=== PATIENT | female | born 1945 | race American Indian/Alaskan Native ===

== ENCOUNTER 2017-12-22 12:45 | Emergency (ER) | payer MEDICARE ==
[2017-12-22] MEDS ORDERED: CATAPRES ONE (13:00)
[2017-12-22] MEDS ORDERED: MOTRIN PO ONE (13:00)
[2017-12-22] MEDS ORDERED: CATAPRES PO ONE (13:01)
[2017-12-22] MEDS ORDERED: TYLENOL PO ONE (13:07)
[2017-12-22] MEDS ORDERED: TYLENOL ONE (13:09)
--- NOTE | 2017-12-22 14:30 | Cat Scan Report ---
CT HEAD WITHOUT CONTRAST: HISTORY: Headache. TECHNIQUE: Sequential CT images without contrast. FINDINGS: Images obtained show bilateral prominence of the sulci and ventricles. There are no abnormal intra- or extra-axial blood or fluid collections. There are no focal masses or evidence of mass effect. The grewal white matter differentiation appears within normal limits. Regions of periventricular decreased attenuation are consistent with microangiopathic ischemic disease. The posterior fossa structures including the fourth ventricle, cerebellum, and brainstem appear normal. IMPRESSION: Evidence of atrophy and microangiopathic ischemic disease. No acute intracranial process noted.
--- NOTE | 2017-12-22 14:32 | Cat Scan Report ---
CT SCAN OF THE CERVICAL SPINE: HISTORY: Neck pain. TECHNIQUE: Contiguous 1.25 mm axial images of the cervical spine were obtained. Sagittal and coronal reformatted images. FINDINGS: There is normal alignment of the cervical spine. The body, pedicles and posterior ligaments are intact. No evidence of fracture or subluxation is seen. Moderate to severe degenerative disc disease is identified from C3-4 through C7-T1. Mild diffuse facet arthropathy is also noted. The prevertebral soft tissues appear normal. IMPRESSION: Moderate to severe multilevel cervical spondylosis. No acute process is noted.
[2017-12-22 14:41] VITALS: BP 138/93
[2017-12-22] MEDS ORDERED: TORADOL IM ONE (16:27)
[2017-12-22] MEDS ORDERED: FLEXERIL PO ONE (16:27)
--- NOTE | 2017-12-22 16:32 | Emergency Department Report ---
HPI - General Chief Complaint: Headache Time Seen by Provider: 12/22/17 16:00 - HPI HPI: 72-year-old AA female presents to the emergency department with complaint of a 24-hour history of a posterior headache and some associated neck pain. The neck pain is towards the side of the neck and radiates down towards the posterior shoulders. She denies any fall or any trauma. She denies any confusion, slurred speech or any other neurological deficits. She tried some Tylenol yesterday for her symptoms without any relief. 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 Primary care physician is Dr. Itz Hernadez and her panel edge painter is Dr. Daley. Her headache is currently 8 out of 10 in intensity. 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, sees a neurologist - Surgical History Past Surgical History?: Yes Hx Internal Defibrillator: Yes Additional Surgical History: Rt THR 2011, lipoma, TL - Social History Smoking Status: Never Smoker Substance Use Type: None - Medications Home Medications: Home Medications Medication Instructions Recorded Confirmed Last Taken Type Aspirin [Adult Low Dose Aspirin EC] 81 mg PO DAILY 01/12/16 01/12/16 Unknown History Aspirin EC [Aspirin Enteric Coated 325 mg PO QDAY #30 tablet 01/16/16 Unknown Rx TAB] AtorvaSTATin [Lipitor] 40 mg PO QHS #30 tablet 01/16/16 Unknown Rx Carvedilol [Coreg] 6.25 mg PO BID #60 tablet 01/16/16 Unknown Rx Furosemide [Lasix TAB] 40 mg PO QDAY #30 tablet 01/16/16 Unknown Rx Lisinopril [Zestril TAB] 5 mg PO QDAY #30 tablet 01/16/16 Unknown Rx Potassium Chloride [K-Dur] 20 meq PO QDAY #30 tablet 01/16/16 Unknown Rx Diclofenac Sodium 75 mg PO BID #20 tablet. 07/09/16 Unknown Rx Cyclobenzaprine [Flexeril 10 MG 10 mg PO BID PRN #12 tablet 12/22/17 Unknown Rx TAB] ED Review of Systems ROS: Stated complaint: HEADACHE Other details as noted in HPI Comment: All other systems reviewed and negative Constitutional: denies: chills, fever Eyes: denies: eye pain, eye discharge, vision change ENT: denies: ear pain, throat pain Respiratory: denies: cough, shortness of breath, wheezing Cardiovascular: denies: chest pain, palpitations Gastrointestinal: denies: abdominal pain, nausea, diarrhea Genitourinary: denies: urgency, dysuria, discharge Musculoskeletal: other (neck pain). denies: back pain Skin: denies: rash, lesions Neurological: headache. denies: numbness, paresthesias Physical Exam - Physical Exam Vital Signs: Vital Signs 12/22/17 12/22/17 12/22/17 12:50 13:02 14:40 Temperature 98.1 F Pulse Rate 108 H 108 H 71 Respiratory 18 18 Rate Blood Pressure 167/113 167/113 Blood Pressure 138/93 [Right] O2 Sat by Pulse 99 100 Oximetry Physical Exam: GENERAL: The patient is well-developed well-nourished. HENT: Normocephalic. Atraumatic. Patient has moist mucous membranes. No nystagmus. EYES: Extraocular motions are intact. Pupils equal reactive to light bilaterally. NECK: Supple. Trachea is midline. No midline tenderness to palpation. There is reproducible bilateral paraspinal tenderness to palpation that goes down along the trapezius muscle with associated hot musculature. CHEST/LUNGS: Clear to auscultation. There is no respiratory distress noted. HEART/CARDIOVASCULAR: Regular. There is no tachycardia. There is no murmur. ABDOMEN: Abdomen is soft, nontender. Patient has normal bowel sounds. There is no abdominal distention. SKIN: Skin is warm and dry. NEURO: The patient is awake, alert, and oriented. The patient is cooperative. The patient has no focal neurologic deficits. The patient has normal speech. Cranial nerves II through XII grossly intact. No dysmetria. No pronator drift. MUSCULOSKELETAL: There is no tenderness or deformity. There is no limitation range of motion. There is no evidence of acute injury. ED Course Vital Signs 12/22/17 12/22/17 12/22/17 12:50 13:02 14:40 Temperature 98.1 F Pulse Rate 108 H 108 H 71 Respiratory 18 18 Rate Blood Pressure 167/113 167/113 Blood Pressure 138/93 [Right] O2 Sat by Pulse 99 100 Oximetry ED Medical Decision Making - EKG Data -: EKG Interpreted by Me EKG shows normal: sinus rhythm, axis (left axis deviation), intervals, QRS complexes (left ventricular hypertrophy, incomplete right bundle branch block), ST-T waves Rate: normal - EKG Data When compared to previous EKG there are: previous EKG unavailable Interpretation: other (sinus rhythm, left axis deviation, LVH, incomplete right bundle-branch block) - Radiology Data Radiology results: report reviewed CT HEAD WITHOUT CONTRAST: HISTORY: Headache. TECHNIQUE: Sequential CT images without contrast. FINDINGS: Images obtained show bilateral prominence of the sulci and ventricles. There are no abnormal intra- or extra-axial blood or fluid collections. There are no focal masses or evidence of mass effect. The grewal white matter differentiation appears within normal limits. Regions of periventricular decreased attenuation are consistent with microangiopathic ischemic disease. The posterior fossa structures including the fourth ventricle, cerebellum, and brainstem appear normal. IMPRESSION: Evidence of atrophy and microangiopathic ischemic disease. No acute intracranial process noted. Transcribed By: TTR Dictated By: EPI LUTHER JR, MD Electronically Authenticated By: EPI LUTHER JR, MD Signed Date/Time: 12/22/[address] SCAN OF THE CERVICAL SPINE: HISTORY: Neck pain. TECHNIQUE: Contiguous 1.25 mm axial images of the cervical spine were obtained. Sagittal and coronal reformatted images. FINDINGS: There is normal alignment of the cervical spine. The body, pedicles and posterior ligaments are intact. No evidence of fracture or subluxation is seen. Moderate to severe degenerative disc disease is identified from C3-4 through C7-T1. Mild diffuse facet arthropathy is also noted. The prevertebral soft tissues appear normal. IMPRESSION: Moderate to severe multilevel cervical spondylosis. No acute process is noted. Transcribed By: TTR Dictated By: EPI LUTHER JR, MD Electronically Authenticated By: EPI LUTHER JR, MD Signed Date/Time: 12/22/17 1431 - Medical Decision Making Patient complains of a posterior headache and some neck pain. There is nothing midline. She had a CT of the head that did not show any bleed, shift, mass, ischemia or any other acute process. CT of the cervical spine shows some degenerative disc disease and osteoarthritis but otherwise no dislocation, subluxation or fracture. Patient was given some Toradol and Flexeril and appears improved. Vital signs stable including being afebrile. She does have some stiffness to the neck but she is able to touch her chin to her chest and most of her restriction is with lateral rotation. She appears low suspicion for meningitic signs. She has some reproducible tenderness and taught musculature to the trapezius muscle and paraspinal cervical muscles. She appears safe for discharge home at this time. She has been given a prescription for a muscle relaxer and will use some heat and stretches. She will return to the ER if any worsening or symptoms or any acute distress. - Differential Diagnosis tension headache, migraine headache, muscle spasm Critical Care Time: No Critical care attestation.: If time is entered above; I have spent that time in minutes in the direct care of this critically ill patient, excluding procedure time. ED Disposition Clinical Impression: Neck pain Headache Qualifiers: Headache type: tension-type Headache chronicity pattern: unspecified pattern Intractability: not intractable Qualified Code(s): G44.209 - Tension-type headache, unspecified, not intractable Disposition: DC-01 TO HOME OR SELFCARE Is pt being admited?: No Condition: Stable Instructions: Tension Headache (ED), Osteoarthritis (ED), Acute Headache (ED), Muscle Spasm (ED) Additional Instructions: Please follow-up with your primary care physician in the next few days. I recommend that you try a heating pad or warm compresses around the neck and shoulders for your muscle tension. Return to the emergency Department with any worsening of your symptoms, development of fever, any neurological changes, or with any acute distress. You have been prescribed a medication that is sedating and therefore should not be taken prior to driving, working, and responsible for children and in no way should be mixed with alcohol of any quantity. Prescriptions: Cyclobenzaprine [Flexeril 10 MG TAB] 10 mg PO BID PRN #12 tablet PRN Reason: Muscle Spasm Referrals: ITZ HERNADEZ MD [Staff Physician] - [facility] Time of Disposition: 18:22
== END 2017-12-22 18:33 | disposition home or self-care (01) ==
LOC: ED 12:45
DX: G44.209 Tension-type headache, unspecified, not intractable (principal); M54.2 Cervicalgia; I10 Essential (primary) hypertension; M19.90 Unspecified osteoarthritis, unspecified site; Z79.82 Long term (current) use of aspirin; Z98.51 Tubal ligation status; Z95.810 Presence of automatic (implantable) cardiac defibrillator
CPT/HCPCS: 70450; 72125; 93005; 93010; 96372; 99283; J1885

== ENCOUNTER 2018-12-24 09:37 | Emergency (ER) | payer MEDICARE ==
[2018-12-24] MEDS ORDERED: TORADOL IM ONE (10:42)
--- NOTE | 2018-12-24 10:45 | Emergency Department Report ---
ED Neck Pain/Injury HPI - General Chief Complaint: Neck Pain/Injury Stated Complaint: NECK PAIN Time Seen by Provider: 12/24/18 10:24 Mode of arrival: Ambulatory Limitations: No Limitations - History of Present Illness Initial Comments: Patient reports that she awoke with a stiff neck. Denies trauma MD Complaint: neck pain -: Gradual Place: home Radiation: right lateral, left lateral Severity: mild Severity scale (0 -10): 3 Quality: aching Consistency: constant Improves With: immobilization Worsens With: movement of neck Context: turning/bending Associated Symptoms: denies: headache, fever, numbness, tingling, weakness, vertigo, difficulty walking, swollen glands, difficulty swallowing, nausea, vomiting - Related Data Home Medications Medication Instructions Recorded Confirmed Last Taken Aspirin [Adult Low Dose Aspirin EC] 81 mg PO DAILY 01/12/16 01/12/16 Unknown Previous Rx's Medication Instructions Recorded Last Taken Type Aspirin EC 325 mg PO QDAY #30 tablet 01/16/16 Unknown Rx AtorvaSTATin [Lipitor] 40 mg PO QHS #30 tablet 01/16/16 Unknown Rx Carvedilol [Coreg] 6.25 mg PO BID #60 tablet 01/16/16 Unknown Rx Furosemide [Lasix TAB] 40 mg PO QDAY #30 tablet 01/16/16 Unknown Rx Lisinopril [Zestril TAB] 5 mg PO QDAY #30 tablet 01/16/16 Unknown Rx Potassium Chloride [K-Dur] 20 meq PO QDAY #30 tablet 01/16/16 Unknown Rx Diclofenac Sodium 75 mg PO BID #20 tablet.dr 07/09/16 Unknown Rx Cyclobenzaprine [Flexeril 10 MG 10 mg PO BID PRN #12 tablet 12/22/17 Unknown Rx TAB] Acetaminophen [Tylenol Arthritis] 650 mg PO Q6HR PRN #30 tablet.er 05/06/18 Unknown Rx Ibuprofen [Motrin] 400 mg PO Q8H PRN #15 tablet 05/06/18 Unknown Rx Ibuprofen [Motrin] 400 mg PO Q6H PRN #24 tablet 12/24/18 Unknown Rx methOCARBAMOL [Robaxin TAB] 500 mg PO Q8H PRN #12 tablet 12/24/18 Unknown Rx Allergies Allergy/AdvReac Type Severity Reaction Status Date / Time lisinopril Allergy Unknown Verified 12/22/17 13:11 codeine AdvReac Itching Verified 01/18/13 10:41 ED Review of Systems ROS: Stated complaint: NECK PAIN Other details as noted in HPI Other: GENERAL: No weight change, fatigue, fever, chills, or night sweats SKIN: No changes in skin or hair, no itching, no rashes, no jaundice HEAD: No trauma, headache, or visual changes EYES: No blurriness, tearing, itching, acute visual loss, conjunctival discoloration, or scleral icterus EARS: No hearing loss, tinnitus, vertigo, or earache NOSE: No rhinorrhea, stuffiness, sneezing, itching, or epistaxis NECK: pain with movement, lateral neck stiffness MOUTH: No bleeding gums, hoarseness, sore throat, or swelling CARDIAC: No new murmur, chest pain, palpitations, dyspnea on exertion, orthopnea, PND, or edema RESPIRATORY: No shortness of breath, wheeze, cough, sputum production, hemoptysis, pneumonia, asthma, bronchitis, or emphysema GI: No change in appetite, nausea, vomiting, dysphagia, diarrhea, constipation, hematemesis, melena, hematochezia, or abdominal pain URINARY: No frequency, urgency, polyuria, dysuria, hematuria, or incontinence MUSCULOSKELETAL: No muscle weakness, joint stiffness, decrease in range of motion, redness, swelling NEUROLOGIC: No headache, loss of sensation, numbness, tingling, tremors, weakness, paralysis, seizures HEMATOLOGIC: No anemia, easy bruising, bleeding, petechiae, or purpura ENDOCRINE: No hot or cold intolerance, sweating, polyuria, polydipsia or, polyphagia no thyroid problems PSYCHIATRIC: No change in mood, no anxiety, no depression 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, sees a neurologist - Surgical History Past Surgical History?: Yes Hx Internal Defibrillator: Yes Additional Surgical History: Rt THR 2011, lipoma, TL - Social History Smoking Status: Never Smoker Substance Use Type: None - Medications Home Medications: Home Medications Medication Instructions Recorded Confirmed Last Taken Type Aspirin [Adult Low Dose Aspirin EC] 81 mg PO DAILY 01/12/16 01/12/16 Unknown History Aspirin EC 325 mg PO QDAY #30 tablet 01/16/16 Unknown Rx AtorvaSTATin [Lipitor] 40 mg PO QHS #30 tablet 01/16/16 Unknown Rx Carvedilol [Coreg] 6.25 mg PO BID #60 tablet 01/16/16 Unknown Rx Furosemide [Lasix TAB] 40 mg PO QDAY #30 tablet 01/16/16 Unknown Rx Lisinopril [Zestril TAB] 5 mg PO QDAY #30 tablet 01/16/16 Unknown Rx Potassium Chloride [K-Dur] 20 meq PO QDAY #30 tablet 01/16/16 Unknown Rx Diclofenac Sodium 75 mg PO BID #20 tablet.dr 07/09/16 Unknown Rx Cyclobenzaprine [Flexeril 10 MG 10 mg PO BID PRN #12 tablet 12/22/17 Unknown Rx TAB] Acetaminophen [Tylenol Arthritis] 650 mg PO Q6HR PRN #30 tablet.er 05/06/18 Unknown Rx Ibuprofen [Motrin] 400 mg PO Q8H PRN #15 tablet 05/06/18 Unknown Rx Ibuprofen [Motrin] 400 mg PO Q6H PRN #24 tablet 12/24/18 Unknown Rx methOCARBAMOL [Robaxin TAB] 500 mg PO Q8H PRN #12 tablet 12/24/18 Unknown Rx ED Physical Exam - General Limitations: No Limitations - Other Other exam information: GENERAL: Patient in no acute distress HEAD: Normocephalic, atraumatic EYES: PERRLA, EOM intact, no scleral icterus, no conjunctival hemorrhage, visual aldrich and acuity wnl NOSE: No tenderness, discharge, sinus tenderness MOUTH: No erythema, bleeding, exudate NECK: No spinal tenderness, decreased ROM due to pain, no trauma HEART: Regular rate and rhythm, no murmur, S1-S2 are auscultated, pulses are symmetric LUNGS: No respiratory distress. Bilateral breath sounds, No tachypnea, No retractions, No wheezing, rales, rhonchi ABDOMEN: Normal bowel sounds, abdomen soft, no tenderness, no rebound, no guarding, no distention, no masses, no CVA tenderness MUSCULOSKELETAL: Normal joint range of motion, no redness, no swelling, no tenderness NEUROLOGIC: GCS 15, Alert and Oriented x3, Cranial nerves intact, normal sensation, normal strength, normal gait, no cerebellar deficit, NIHSS 0 PSYCHIATRIC: No homicidal or suicidal ideation, no anxiety, no depression, no hallucinations SKIN: Skin is warm and dry, no wounds, no rashes ED Course Vital Signs 12/24/18 12/24/18 09:43 11:10 Temperature 97.9 F Pulse Rate 88 83 Respiratory 16 16 Rate Blood Pressure 163/113 Blood Pressure 182/93 [Left] O2 Sat by Pulse 99 99 Oximetry ED Medical Decision Making - Medical Decision Making Patient comfortable. Plan treat for possible torticollis. Plan discharge with outpatient follow up. Return if any worsening. Critical care attestation.: If time is entered above; I have spent that time in minutes in the direct care of this critically ill patient, excluding procedure time. ED Disposition Clinical Impression: Torticollis Disposition: - TO HOME OR SELFCARE Is pt being admited?: No Condition: Stable Instructions: Spasmodic Torticollis (ED) Prescriptions: Ibuprofen [Motrin] 400 mg PO Q6H PRN #24 tablet PRN Reason: Pain, Mild (1-3) methOCARBAMOL [Robaxin TAB] 500 mg PO Q8H PRN #12 tablet PRN Reason: Spasms Referrals: PRIMARY CARE, [Referring] - 2-3 Days Time of Disposition: 10:43
[2018-12-24] MEDS ORDERED: ROBAXIN PO ONE (11:00)
[2018-12-24 11:11] VITALS: BP 182/93
== END 2018-12-24 11:12 | disposition home or self-care (01) ==
LOC: ED 09:37
DX: M43.6 Torticollis (principal); I10 Essential (primary) hypertension; M19.90 Unspecified osteoarthritis, unspecified site; Z88.5 Allergy status to narcotic agent; Z79.82 Long term (current) use of aspirin; Z79.899 Other long term (current) drug therapy
CPT/HCPCS: 96372; 99282; J1885

== ENCOUNTER 2019-04-26 03:12 | Emergency (ER) | payer MEDICARE | END 2019-04-26 11:36 | disposition home or self-care (01) | LOC: ED 03:12 | CPT/HCPCS: 20605; 36415; 73100; 80048; 80076; 82140; 83735; 84550; 85025; 85652; 86140; 87040; 96374; 96375; 99284; J2270; J2405 ==

== ENCOUNTER 2020-02-12 09:06 | Emergency (ER) | payer MEDICARE ==
[2020-02-12 09:20] VITALS: BP 151/99
[2020-02-12] MEDS ORDERED: KETOROLAC 30 MG/1 ML INJ IM ONE (09:54)
[2020-02-12] MEDS ORDERED: dexAMETHasone 20 MG/5 ML VIAL IM ONE (09:54)
--- NOTE | 2020-02-12 09:58 | Emergency Department Report ---
Upper Extremity - [facility] Chief Complaint: Extremity Injury, Upper Stated Complaint: RT ARM PAIN/DISCOMFORT Time Seen by Provider: 02/12/20 09:32 Upper Extremity: Right Elbow Occurred When: 2 Days Mechanism: Unsure Severity: severe Symptoms: Yes Pain with Movement, Yes Limited Range of Movement, Yes Swelling, No Deformity, No Numbness, No Weakness, No Bruising/Ecchymosis, No Laceration or Abrasion Other History: The patient was evaluated in the emergency department for symptoms described in the history of present illness. He/she was evaluated in the context of the global COVID-19 pandemic, which necessitated consideration that the patient might be at risk for infection with the virus that causes COVID-19. Institutional protocols and algorithms that pertain to the evaluation of patients at risk for COVID-19 are in a state of rapid change based on information released by regulatory bodies including the CDC and federal and state organizations. These policies and algorithms were followed during the patient's care in the emergency department. Please note that these policies, procedures and recommendations changed on a rapid basis. 74-year-old - [place] female presents to the emergency room for 2-day history of right elbow pain and swelling. Patient denies any injury. Patient states that she woke up on started having a little pain again on Thursday pain had increased and notes inability to fully extend her right arm. Patient denies any fever chills no trauma. 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 Operative fixation of the T-spine - Social History Smoking Status: Never Smoker Substance Use Type: None - Medications Home Medications: Home Medications Medication Instructions Recorded Confirmed Last Taken Type Aspirin [Adult Low Dose Aspirin EC] 81 mg PO DAILY 01/12/16 01/12/16 Unknown History Aspirin EC [Ecotrin] 325 mg PO QDAY #30 tablet 01/16/16 Unknown Rx AtorvaSTATin [Lipitor] 40 mg PO QHS #30 tablet 01/16/16 Unknown Rx Furosemide [Lasix TAB] 40 mg PO QDAY #30 tablet 01/16/16 Unknown Rx Potassium Chloride [K-Dur] 20 meq PO QDAY #30 tablet 01/16/16 Unknown Rx carvediloL [Coreg] 6.25 mg PO BID #60 tablet 01/16/16 Unknown Rx lisinopriL [Zestril TAB] 5 mg PO QDAY #30 tablet 01/16/16 Unknown Rx Diclofenac Sodium 75 mg PO BID #20 tablet. 07/09/16 Unknown Rx Cyclobenzaprine [Flexeril 10 MG 10 mg PO BID PRN #12 tablet 12/22/17 Unknown Rx TAB] Acetaminophen [Tylenol Arthritis] 650 mg PO Q6HR PRN #30 tablet.er 05/06/18 Unknown Rx Ibuprofen [Motrin] 400 mg PO Q8H PRN #15 tablet 05/06/18 Unknown Rx Ibuprofen [Motrin] 400 mg PO Q6H PRN #24 tablet 12/24/18 Unknown Rx methOCARBAMOL [Robaxin TAB] 500 mg PO Q8H PRN #12 tablet 12/24/18 Unknown Rx HYDROcodone/APAP 5-325 [Atka 1 each PO Q4HR PRN #14 tablet 04/26/19 Unknown Rx 5/325] Naproxen [Naproxen DR] 375 mg PO BID #14 tablet.dr 04/26/19 Unknown Rx Meloxicam [Mobic] 7.5 mg PO QDAY #30 tablet 02/12/20 Unknown Rx predniSONE [Deltasone] 20 mg PO QDAY #5 tab 02/12/20 Unknown Rx Upper Extremity Exam - Exam General: Vital signs noted. No distress. Alert and acting appropriately. ED Course Vital Signs 02/12/20 09:16 Temperature 98.0 F Pulse Rate 87 Respiratory 18 Rate Blood Pressure 151/99 O2 Sat by Pulse 100 Oximetry ED Medical Decision Making - Medical Decision Making 74-year-old -[place] female presents to the emergency room for 2-day history of right elbow pain and swelling. Patient denies any injury. Patient states that she woke up on started having a little pain again on Thursday pain had increased and notes inability to fully extend her right arm. Patient denies any fever chills no trauma. Patient denies any repetitive movements such as playing sports cooking knitting cleaning. Patient was given injection of Toradol and dexamethasone. Patient was given something to eat and drink to take her blood pressure medication. Critical care attestation.: If time is entered above; I have spent that time in minutes in the direct care of this critically ill patient, excluding procedure time. ED Disposition Clinical Impression: Right elbow tendinitis Disposition: - TO HOME OR SELFCARE Is pt being admited?: No Does the pt Need Aspirin: No Condition: Stable Instructions: Tendinitis (ED), Tennis Elbow (ED) Additional Instructions: Please take medication as prescribed. Be sure to increase your fluid intake. You can get an [id number] elbow brace at the pharmacy. Follow-up with your primary care provider for symptoms persist or gets worse. Prescriptions: predniSONE [Deltasone] 20 mg PO QDAY #5 tab Meloxicam [Mobic] 7.5 mg PO QDAY #30 tablet Referrals: TEODORA SOSA MD [Staff Physician] - 3-5 Days
== END 2020-02-12 10:25 | disposition home or self-care (01) ==
LOC: ED 09:06
DX: M77.8 Other enthesopathies, not elsewhere classified (principal); I10 Essential (primary) hypertension; M19.90 Unspecified osteoarthritis, unspecified site; Z88.6 Allergy status to analgesic agent; Z88.8 Allergy status to other drugs, medicaments and biological substances; Z79.899 Other long term (current) drug therapy; Z98.890 Other specified postprocedural states
CPT/HCPCS: 96372; 99282; J1100; J1885

== ENCOUNTER 2021-04-11 19:08 | Emergency (ER) | payer MEDICARE ==
--- NOTE | 2021-04-11 22:08 | XRay Report ---
Lumbar spine, 3 views HISTORY: Pain COMPARISON: None FINDINGS: There is moderate left convex curvature of the lumbar spine with apex at L3. Grade 1 ashley listhesis of L4 on L5 is likely related to severe lower lumbar facet arthropathy. Moderately advanced lower lumbar discogenic degenerative changes, greatest at L5-S1. Vertebral body heights are preserve d. No evidence of fracture. IMPRESSION: Advanced and multilevel lumbar spondylosis, greatest within the lower lumbar spine. Degen erative grade 1 anterolisthesis of L4 on L5. No acute abnormality. Signer Name: Matt Schilling MD Signed: 04/11/2021 10:04 PM Workstation Name: [id number]
--- NOTE | 2021-04-11 22:09 | Emergency Department Report ---
ED General Adult HPI - General Chief complaint: Back Pain/Injury Stated complaint: BACK PAINS Time Seen by Provider: 04/11/21 21:20 Source: patient Mode of arrival: Ambulatory Limitations: No Limitations - History of Present Illness Initial comments: Knee 6-year-old female with history of hypertension who presents for bilateral low back pain patient denies fall injury or trauma. Patient denies history of renal stones. Patient does have surgical history secondary diagnosis of 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. With some arthralgia. There is no numbness no tingling no paralysis. Patient denies decrease or loss of bowel or bladder function. Pain is rated at 7/10 radiating to bilateral lower extremities. Pain exacerbated by movement. Delia urinary frequency and urgency. No hematuria. Patient is postmenopausal. - Related Data Home Medications Medication Instructions Recorded Confirmed Last Taken Aspirin [Adult Low Dose Aspirin EC] 81 mg PO DAILY 01/12/16 01/12/16 Unknown Previous Rx's Medication Instructions Recorded Last Taken Type Aspirin EC [Ecotrin] 325 mg PO QDAY #30 tablet 01/16/16 Unknown Rx AtorvaSTATin [Lipitor] 40 mg PO QHS #30 tablet 01/16/16 Unknown Rx Furosemide [Lasix TAB] 40 mg PO QDAY #30 tablet 01/16/16 Unknown Rx Potassium Chloride [K-Dur] 20 meq PO QDAY #30 tablet 01/16/16 Unknown Rx carvediloL [Coreg] 6.25 mg PO BID #60 tablet 01/16/16 Unknown Rx lisinopriL [Zestril TAB] 5 mg PO QDAY #30 tablet 01/16/16 Unknown Rx Diclofenac Sodium 75 mg PO BID #20 tablet. 07/09/16 Unknown Rx Cyclobenzaprine [Flexeril 10 MG 10 mg PO BID PRN #12 tablet 12/22/17 Unknown Rx TAB] Acetaminophen [Tylenol Arthritis] 650 mg PO Q6HR PRN #30 tablet.er 05/06/18 Unknown Rx Ibuprofen [Motrin] 400 mg PO Q8H PRN #15 tablet 05/06/18 Unknown Rx Ibuprofen [Motrin] 400 mg PO Q6H PRN #24 tablet 12/24/18 Unknown Rx methOCARBAMOL [Robaxin TAB] 500 mg PO Q8H PRN #12 tablet 12/24/18 Unknown Rx HYDROcodone/APAP 5-325 [[place] 1 each PO Q4HR PRN #14 tablet 04/26/19 Unknown Rx 5/325] Naproxen [Naproxen DR] 375 mg PO BID #14 tablet.dr 04/26/19 Unknown Rx Meloxicam [Mobic] 7.5 mg PO QDAY #30 tablet 02/12/20 Unknown Rx predniSONE [Deltasone] 20 mg PO QDAY #5 tab 02/12/[address] [Voltaren Dr] 75 mg PO QID PRN #30 tablet 04/12/21 Unknown Rx predniSONE [Deltasone] 40 mg PO QDAY 5 Days #10 tab 04/12/21 Unknown Rx tiZANidine [Zanaflex 4mg TAB] 4 mg PO Q8H PRN #20 tablet 04/12/21 Unknown Rx Allergies Allergy/AdvReac Type Severity Reaction Status Date / Time lisinopril Allergy Unknown Verified 12/22/17 13:11 codeine AdvReac Itching Verified 01/18/13 10:41 ED Review of Systems ROS: Stated complaint: BACK PAINS Other details as noted in HPI Constitutional: denies: chills, fever Eyes: denies: eye pain, eye discharge, vision change ENT: denies: ear pain, throat pain Respiratory: denies: cough, shortness of breath, wheezing Cardiovascular: denies: chest pain, palpitations Endocrine: no symptoms reported Gastrointestinal: denies: abdominal pain, nausea, vomiting, diarrhea Genitourinary: urgency, dysuria, frequency. denies: hematuria, discharge Musculoskeletal: back pain, arthralgia Skin: denies: rash, lesions Neurological: denies: headache, weakness, paresthesias, vertigo Psychiatric: denies: anxiety, depression Hematological/Lymphatic: denies: easy bleeding, easy bruising ED Past Medical Hx - Past Medical History Hx Hypertension: Yes Hx Arthritis: Yes Additional medical history: 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, sees a neurologist - Surgical History Hx Internal Defibrillator: Yes Additional Surgical History: Rt THR 2012, lipoma, TL. Operative fixation of the T-spine - Social History Smoking Status: Never Smoker Substance Use Type: None - Medications Home Medications: Home Medications Medication Instructions Recorded Confirmed Last Taken Type Aspirin [Adult Low Dose Aspirin EC] 81 mg PO DAILY 01/12/16 01/12/16 Unknown History Aspirin EC [Ecotrin] 325 mg PO QDAY #30 tablet 09/14/16 Unknown Rx AtorvaSTATin [Lipitor] 40 mg PO QHS #30 tablet 01/16/16 Unknown Rx Furosemide [Lasix TAB] 40 mg PO QDAY #30 tablet 01/16/16 Unknown Rx Potassium Chloride [K-Dur] 20 meq PO QDAY #30 tablet 01/16/16 Unknown Rx carvediloL [Coreg] 6.25 mg PO BID #60 tablet 01/16/16 Unknown Rx lisinopriL [Zestril TAB] 5 mg PO QDAY #30 tablet 01/16/16 Unknown Rx Diclofenac Sodium 75 mg PO BID #20 tablet.dr 07/09/16 Unknown Rx Cyclobenzaprine [Flexeril 10 MG 10 mg PO BID PRN #12 tablet 12/22/17 Unknown Rx TAB] Acetaminophen [Tylenol Arthritis] 650 mg PO Q6HR PRN #30 tablet.er 05/06/18 Unknown Rx Ibuprofen [Motrin] 400 mg PO Q8H PRN #15 tablet 05/06/18 Unknown Rx Ibuprofen [Motrin] 400 mg PO Q6H PRN #24 tablet 12/24/18 Unknown Rx methOCARBAMOL [Robaxin TAB] 500 mg PO Q8H PRN #12 tablet 12/24/18 Unknown Rx HYDROcodone/APAP 5-325 [[place] 1 each PO Q4HR PRN #14 tablet 04/26/19 Unknown Rx 5/325] Naproxen [Naproxen DR] 375 mg PO BID #14 tablet.dr 04/26/19 Unknown Rx Meloxicam [Mobic] 7.5 mg PO QDAY #30 tablet 02/12/20 Unknown Rx predniSONE [Deltasone] 20 mg PO QDAY #5 tab 02/12/[address] [[place]] 75 mg PO QID PRN #30 tablet 04/12/21 Unknown Rx predniSONE [Deltasone] 40 mg PO QDAY 5 Days #10 tab 04/12/21 Unknown Rx tiZANidine [Zanaflex 4mg TAB] 4 mg PO Q8H PRN #20 tablet 04/12/21 Unknown Rx ED Physical Exam - General Limitations: No Limitations General appearance: alert, in no apparent distress - Head Head exam: Present: atraumatic, normocephalic - Eye Eye exam: Present: normal appearance, EOMI Pupils: Present: normal accommodation - ENT ENT exam: Present: mucous membranes moist - Neck Neck exam: Present: normal inspection, full ROM. Absent: tenderness, meningismus - Respiratory Respiratory exam: Present: normal lung sounds bilaterally. Absent: respiratory distress, wheezes, rhonchi - Cardiovascular Cardiovascular Exam: Present: regular rate, normal rhythm, normal heart sounds. Absent: systolic murmur, diastolic murmur, rubs, gallop - GI/Abdominal GI/Abdominal exam: Present: soft, normal bowel sounds. Absent: distended, tenderness, bruit, hernia - Rectal Rectal exam: Present: deferred - Extremities Exam Extremities exam: Present: normal inspection, full ROM. Absent: tenderness - Back Exam Back exam: Present: full ROM, CVA tenderness (L), paraspinal tenderness. Absent: CVA tenderness (R), muscle spasm, vertebral tenderness, rash noted - Expanded Back Exam Expanded Back exam: Absent: saddle anesthesia Back exam: Positive Straight Leg Raise: Left, Right - Neurological Exam Neurological exam: Present: alert, oriented X3, CN II-XII intact, reflexes normal. Absent: motor sensory deficit - Expanded Neurological Exam Expanded Patient oriented to: Present: person, place, time Speech: Present: fluid speech Motor strength exam: RUE: 5, LUE: 5, RLE: 5, LLE: 5 Best Eye Response ([place]): (4) open spontaneously Best Motor Response ([place]): (6) obeys commands Best Verbal Response ([place]): (5) oriented Radha Total: 15 - Psychiatric Psychiatric exam: Present: normal affect, normal mood - Skin Skin exam: Present: warm, dry, intact, normal color. Absent: rash ED Course Vital Signs 04/11/21 19:08 Temperature 97.9 F Pulse Rate 95 H Respiratory 20 Rate Blood Pressure 166/99 [Left] O2 Sat by Pulse 97 Oximetry ED Medical Decision Making - Lab Data Result diagrams: 04/11/21 22:15 04/11/21 22:15 - Radiology Data Radiology results: report reviewed, image reviewed Lumbar spine, 3 views HISTORY: Pain COMPARISON: None FINDINGS: There is moderate left convex curvature of the lumbar spine with apex at L3. Grade 1 anterolisthesis of L4 on L5 is likely related to severe lower lumbar facet arthropathy. Moderately advanced lower lumbar discogenic degenerative changes, greatest at L5-S1. Vertebral body heights are preserved. No evidence of fracture. IMPRESSION: Advanced and multilevel lumbar spondylosis, greatest within the lower lumbar spine. Degenerative grade 1 anterolisthesis of L4 on L5. No acute abnormality. Signer Name: Matt Schilling MD Signed: 04/11/2021 10:04 PM Workstation Name: [id number] - Medical Decision Making Pain is improved with medications given in ED, UA normal, x-ray severe lumbar spondylosis. Plan follow-up with orthopedic surgery, follow-up primary care doctor. Return to emergency department should symptoms worsen. Patient verbalized agreement and understanding with discharge plan. Home in stable condition at this time. Critical care attestation.: If time is entered above; I have spent that time in minutes in the direct care of this critically ill patient, excluding procedure time. ED Disposition Clinical Impression: Lumbar spondylosis Low back strain Qualifiers: Encounter type: initial encounter Qualified Code(s): S39.012A - Strain of muscle, fascia and tendon of lower back, initial encounter Disposition: HOME / SELF CARE / HOMELESS Is pt being admited?: No Does the pt Need Aspirin: No Condition: Stable Instructions: Low Back Sprain or Strain Rehab-SportsMed, Degenerative Disk Disease Additional Instructions: Take medications as prescribed, follow-up with orthopedic surgery. Follow-up with your primary care doctor in 2 to 3 days. Return to emergency department should symptoms worsen. Prescriptions: predniSONE [Deltasone] 40 mg PO QDAY 5 Days #[address] [Voltaren Dr] 75 mg PO QID PRN #30 tablet PRN Reason: pain tiZANidine [Zanaflex 4mg TAB] 4 mg PO Q8H PRN #20 tablet PRN Reason: back spasms Referrals: THOMAS DUPONT MD [Staff Physician] - 3-5 Days CLEMENTINE GARCIAS MD [Staff Physician] - 3-5 Days Forms: Work/School Release Form(ED) Time of Disposition: 00:16
[2021-04-11 22:49] LABS: Bilirubin,Urine NEG (Negative); Blood,Urine NEG (Negative); Color,Urine Yellow (Yellow); Mucus,Urine FEW /HPF; Protein,Urine <15 mg/dL mg/dL (Negative)
[2021-04-11 22:51] LABS: Basophils % (Auto) 0.3 % (0.0-1.8); Eosinophils # (Auto) 0.1 K/mm3 (0.0-0.4); Eosinophils % (Auto) 1.2 % (0.0-4.3); Hematocrit 41.1 % (30.3-42.9); Lymphocytes # (Auto) 2.8 K/mm3 (1.2-5.4); Mean Corpuscular HGB Conc 32 % (30-34); Mean Corpuscular Volume 90 fl (79-97); Monocytes # (Auto) 0.7 K/mm3 (0.0-0.8); Monocytes % (Auto) 8.7 % (0.0-7.3); Platelet Count 179 K/mm3 (140-440); Red Blood Count 4.57 M/mm3 (3.65-5.03); Red Cell Distribution Width 14.3 % (13.2-15.2)
[2021-04-11 23:09] LABS: Alanine Aminotransferase 8 units/L (7-56); Albumin 4.5 g/dL (3.9-5); BUN/Creatinine Ratio 26; Blood Urea Nitrogen 18 mg/dL (7-17); Calcium 9.8 mg/dL (8.4-10.2); Hemolysis Index 2
[2021-04-11] MEDS ORDERED: KETOROLAC 30 MG/1 ML INJ IM ONE (23:49)
[2021-04-12 01:08] VITALS: BP 147/89
== END 2021-04-12 01:00 | disposition home or self-care (01) ==
LOC: ED 19:08
DX: M47.816 Spondylosis without myelopathy or radiculopathy, lumbar region (principal); S39.012A Strain of muscle, fascia and tendon of lower back, initial encounter; X58.XXXA Exposure to other specified factors, initial encounter; I10 Essential (primary) hypertension; Z88.5 Allergy status to narcotic agent; Z88.8 Allergy status to other drugs, medicaments and biological substances; Y93.89 Activity, other specified; Y92.89 Other specified places as the place of occurrence of the external cause; Y99.8 Other external cause status
CPT/HCPCS: 36415; 72100; 80053; 81001; 85025; 96372; 99284; J1885

== ENCOUNTER 2021-07-09 11:07 | Outpatient (CLI) | payer MEDICARE ==
--- NOTE | 2021-07-09 13:21 | XRay Report ---
PELVIS ONE VIEW RIGHT FEMUR 2 VIEWS INDICATION: PAIN IN THR RIGHT HIP M25.551. COMPARISON: 05/06/2018 IMPRESSION: Stable appearance of the right hip replacement since the previous exam. No evidence for loosening or infection. The right femur is intact. The pelvic bones are intact. No evidence for acute fracture or bone lesion. There are advanced degenerative changes at the left hip. 2 cm calcified [place] fibroid is noted in the central pelvis. The soft tissues are unremarkable. Signer Name: Jj Hill Jr, MD Signed: 07/09/2021 1:16 PM Workstation Name: [id number]
--- NOTE | 2021-07-09 13:22 | XRay Report ---
PELVIS ONE VIEW RIGHT FEMUR 2 VIEWS INDICATION: PAIN IN THR RIGHT HIP M25.551. COMPARISON: 05/06/2018 IMPRESSION: Stable appearance of the right hip replacement since the previous exam. No evidence for loosening or infection. The right femur is intact. The pelvic bones are intact. No evidence for acute fracture or bone lesion. There are advanced degenerative changes at the left hip. 2 cm calcified [place] fibroid is noted in the central pelvis. The soft tissues are unremarkable. Signer Name: Jj Hill Jr, MD Signed: 07/09/2021 1:16 PM Workstation Name: [id number]
== END 2021-07-09 11:08 | disposition home or self-care (01) ==
LOC: XRAY 11:07
PROVIDERS: ATTEND Orthopaedic Surgery
DX: M16.12 Unilateral primary osteoarthritis, left hip (principal); D25.9 Leiomyoma of uterus, unspecified
CPT/HCPCS: 72170

== ENCOUNTER 2021-11-08 09:49 | Inpatient (IN) | payer MEDICAID, MEDICARE ==
[2021-11-05 10:54] LABS: Hematocrit 40.5 % (30.3-42.9); Hemoglobin 13.2 gm/dl (10.1-14.3); Mean Corpuscular HGB Conc 33 % (30-34); Mean Corpuscular Volume 88 fl (79-97); Platelet Count 181 K/mm3 (140-440); Red Cell Distribution Width 14.3 % (13.2-15.2)
--- NOTE | 2021-11-05 11:08 | Anesthesia Consultation ---
Anesthesia Consult and Med Hx Date of service: 11/05/21 - Airway Anesthetic Teeth Evaluation: Good ROM Head & Neck: Adequate Mental/Hyoid Distance: Adequate Mallampati Class: Class II Intubation Access Assessment: Probably Good - Pre-Operative Health Status ASA Pre-Surgery Classification: ASA3 Proposed Anesthetic Plan: General - Pulmonary Hx Smoking: No Hx Sleep Apnea: No (WAN PRE SCREEN LOW RISK) - Cardiovascular System Hx Hypertension: Yes (X 14 YRS) Hx Heart Attack/AMI: No (EF 25%) Hx Pacemaker: Yes (2011) Hx Internal Defibrillator: Yes (2011) - Central Nervous System Hx Back Pain: Yes (WITH RIGHT LEG PAIN AND NUMBNESS) Hx Psychiatric Problems: No - Hematic Hx Anemia: No - Other Systems Hx Cancer: No
[2021-11-05 11:10] LABS: BUN/Creatinine Ratio 24; Blood Urea Nitrogen 19 mg/dL (7-17); Calcium 9.7 mg/dL (8.4-10.2); Hemolysis Index 2
[~2021-11-08 09:49] MED LIST: ACETAMINOPHEN 325 MG TAB PO SCH; CELECOXIB 200 MG CAP PO NR; FAMOTIDINE 20 MG TAB PO NR; GABAPENTIN 500 MG/10 ML ORAL LIQD PO NR; LACTATED RINGERS 1,000 ML IV SCH; MIDAZOLAM 2 MG/2 ML INJ IV NR; ceFAZolin/Water 2 GM/20 ML 2 GM/20 ML SYRINGE IV NR; fentaNYL 100 MCG/2 ML INJ IV PRN
[2021-11-08] MEDS ORDERED: dexAMETHasone 4 MG/ML VIAL ONE (11:27)
[2021-11-08] MEDS ORDERED: BUPIVACAINE/PF (0.25%) 2.5 MG/ML 10 ML VIAL INFILTRATI ONE (11:28)
--- NOTE | 2021-11-08 11:55 | Anesthesia Day of Surgery ---
Anesthesia Day of Surgery - Day of Surgery Patient Examined: Yes Patient H&P Reviewed: Yes Patient is NPO: Yes Beta Blockers: Yes Cardiac Clearance: Yes
[2021-11-08] MEDS ORDERED: ANTICOAGULANT SOD CITRATE SOLUTION MC ONE (12:09)
[2021-11-08] MEDS ORDERED: fentaNYL 100 MCG/2 ML INJ ONE (12:29)
[2021-11-08] MEDS ORDERED: propofoL 200 MG/20 ML VIAL IV ONE (12:30)
[2021-11-08] MEDS ORDERED: LIDOCAINE MPF (2%) 20 MG/1 ML VIAL 5 ML ONE (12:31)
[2021-11-08] MEDS ORDERED: BUPIVACAINE/PF (0.5%) 5 MG/1 ML 10 ML VIAL INFILTRATI ONE ×2 (13:01→15:09)
[2021-11-08] MEDS ORDERED: MORPHINE 10 MG/1 ML INJ ONE (13:02)
[2021-11-08] MEDS ORDERED: SODIUM CHLORIDE 0.9% 100 ML ONE (13:02)
[2021-11-08] MEDS ORDERED: SODIUM CHLORIDE 0.9% 50 ML ONE (13:02)
[2021-11-08] MEDS ORDERED: TRANEXAMIC ACID 1,000 MG/10 ML ONE (13:02)
[2021-11-08] MEDS ORDERED: KETOROLAC 30 MG/1 ML INJ ONE (13:04)
[2021-11-08] MEDS ORDERED: FAMOTIDINE 20 MG/2 ML INJ IV ONE (13:36)
[2021-11-08] MEDS ORDERED: ePHEDrine SULFATE 50 MG/1 ML INJ ONE (14:12)
[2021-11-08] MEDS ORDERED: MORPHINE 4 MG/1 ML INJ IV PRN (14:22)
[2021-11-08] MEDS ORDERED: MORPHINE 2 MG/1 ML INJ IV PRN (14:22)
[2021-11-08] MEDS ORDERED: ONDANSETRON 4 MG/2 ML INJ IV PRN (14:22)
[2021-11-08] MEDS ORDERED: ACETAMINOPHEN 325 MG TAB PO PRN (14:22)
--- NOTE | 2021-11-08 14:30 | Procedure Note ---
Date of procedure: 11/08/21 Pre-op diagnosis: Severe osteoarthritis left hip Post-op diagnosis: same Procedure: Left total hip replacement Procedure The patient was brought to the OR and placed in the OR table in the supine position following induction intubation by anesthesia the patient's was turned into the right lateral decubitus position care was taken to protect the bony areas and a axillary roll was used and the left axilla. Left hip and thigh were then prepped and draped in the usual sterile manner. A timeout procedure was done to identify the patient and the correct operative site. Using the lateral approach incision was taken down through skin and subcutaneous the fascia dustin was incised A Charnley retractor was placed deep within the wound care was taken to enter the anterior hip capsule by the vastus lateralis and the gluteus medius tendons in the knee was flexed and internally rotated which brought us upon the anterior portion of the hip joint using a small broach and osteotomy was performed on the femoral neck approximately 2 cm to centimeters proximal to the lesser trochanter. Using Lino retractors the the acetabular structures were evaluated the patient was noted to have some moderate changes within the acetabulum reaming was begun starting with a 44 mm diameter and advancing up to a 50 mm cup was taken to the observed bleeding bone within the acetabulum nicely 50 mm cup was inserted care was taken to maintain the proper version that being 45 abduction and 20 of anteversion and a small screw was used to stabilize this acetabular component next attention was turned to the proximal femur using a cookie cutter and the proximal femoral canal was entered this was then reamed and broached to a #2 stem And the hip joint was then reduced using a 30 neutral neck and a 32 mm head hip was reduced taken through a range of motion and was found to be stable Trial component was removed and the hip joint was then copiously irrigated the final components were inserted that being a #2 femoral stem with a 32 mm head again the hip joint was reduced and was taken through a range of motion and found stable. He was closed in a standard routine fashion. Dressings were applied the patient tolerated the procedure and there were no complications he was taken to postanesthesia recovery stable Anesthesia: MAC, regional Surgeon: THOMAS DUPONT (Scotty Garcia, 1st assist) Estimated blood loss: other (300cc) Pathology: list (Portions of the left femoral head and neck) Specimen disposition: to lab Condition: stable Disposition: PACU
[2021-11-08] MEDS ORDERED: ceFAZolin/NS 1 GM/50 ML 1 GM/50 ML BAG IV SCH (15:00)
[2021-11-08] MEDS ORDERED: TRANEXAMIC ACID 1,000 MG/10 ML IV ONE (15:06)
[2021-11-08] MEDS ORDERED: MORPHINE 10 MG/1 ML INJ IM ONE (15:07)
[2021-11-08] MEDS ORDERED: KETOROLAC 30 MG/1 ML INJ IM ONE (15:07)
[2021-11-08] MEDS ORDERED: SODIUM CHLORIDE 0.9% 50 ML IVPB IV ONE (15:08)
[2021-11-08] MEDS ORDERED: SODIUM CHLORIDE 0.9% 100 ML IVPB IV ONE (15:08)
--- NOTE | 2021-11-08 15:21 | XRay Report ---
LEFT HIP ONE VIEW INDICATION: post op evaluation. COMPARISON: 05/06/2018 IMPRESSION: Recent left hip arthroplasty changes are evident. The hardware appears well applied wit h normal articulation at the joint. Signer Name: Jj Hill Jr, MD Signed: 11/08/2021 3:17 PM Workstation Name: [id number]
[2021-11-08] MEDS: KETOROLAC 30 MG/1 ML INJ IV PRN ×2 (15:55→23:26)
[2021-11-08] MEDS: ceFAZolin/NS 1 GM/50 ML 1 GM/50 ML BAG IV SCH (21:50)
[2021-11-09] MEDS: ceFAZolin/NS 1 GM/50 ML 1 GM/50 ML BAG IV SCH (04:39)
[2021-11-09 08:47] LABS: Hematocrit 37.9 % (30.3-42.9); Hemoglobin 11.9 gm/dl (10.1-14.3)
--- NOTE | 2021-11-09 12:13 | Consultation ---
History of Present Illness - Reason for Consult Consult date: 11/09/21 Medical management Requesting physician: THOMAS CERON - History of Present Illness 76 YO Female with Vascular Dementia, Cerebral Atherosclerosis, OA, HTN, HLD, CHF(EF 25%), Cardiomyopathy S/P ICD Placement admitted for elective THR. Consult placed by Dr. Ceron for medical management. Patient seen and evaluated in room. Patient resting comfortably. Patient denies chest pain, dizziness, confusion, shortness of breath. Patient found to be hypotensive with a systolic blood pressure in the 80s. Patient treated with IV fluid resuscitation therapy and infectious work-up. Past History Past Medical History: arthritis, heart failure, hypertension, hyperlipidemia Past Surgical History: total hip replacement, Other (Spine surgery) Social history: single. denies: smoking, alcohol abuse, prescription drug abuse Family history: diabetes, hypertension Medications and Allergies Allergies Allergy/AdvReac Type Severity Reaction Status Date / Time lisinopril Allergy COUGH , Verified 10/29/21 16:23 ITCHING codeine AdvReac Itching Verified 01/18/13 10:41 Home Medications Medication Instructions Recorded Confirmed Last Taken Type Aspirin [Adult Low Dose Aspirin EC] 81 mg PO DAILY 01/12/16 10/29/21 Unknown History AtorvaSTATin [Lipitor] 40 mg PO QHS #30 tablet 01/16/16 10/29/21 11/07/21 Rx Furosemide [Lasix TAB] 40 mg PO QDAY #30 tablet 01/16/16 10/29/21 11/07/21 Rx Doxazosin Mesylate [Cardura] 2 mg PO DAILY 10/29/21 10/29/21 11/07/21 History Losartan [Cozaar] 100 mg PO QDAY 10/29/21 10/29/21 11/07/21 History Omeprazole 40 mg PO BID 10/29/21 10/29/21 11/07/21 History Spironolactone [Aldactone] 25 mg PO QDAY 10/29/21 10/29/21 11/07/21 History carvediloL [Coreg] 12.5 mg PO BID 10/29/21 11/08/21 11/08/21 06:00 History traMADoL [Ultram] 50 mg PO Q6HR PRN 10/29/21 10/29/21 11/07/21 History Active Meds: Active Medications Acetaminophen (Acetaminophen 325 Mg Tab) 650 mg PO Q4H PRN PRN Reason: Pain MILD(1-3)/Fever >100.5/SHARMA Atorvastatin Calcium (Atorvastatin 40 Mg Tab) 40 mg PO QHS MITUL Enoxaparin Sodium (Enoxaparin 40 Mg/0.4 Ml Inj) 40 mg SUB-Q QDAY MITUL Ibuprofen (Ibuprofen 800 Mg Tab) 800 mg PO Q8H PRN PRN Reason: Pain, Moderate (4-6) Ketorolac Tromethamine (Ketorolac 30 Mg/1 Ml Inj) 15 mg IV Q6H PRN PRN Reason: Pain, Moderate (4-6) Stop: 11/13/21 14:21 Last Admin: 11/08/21 23:26 Dose: 15 mg Miscellaneous Medication (Omeprazole [Omeprazole]) 40 mg PO BID [facility] Morphine Sulfate (Morphine 2 Mg/1 Ml Inj) 2 mg IV Q4H PRN PRN Reason: Pain, Moderate (4-6) Last Admin: 11/09/21 04:38 Dose: 2 mg Morphine Sulfate (Morphine 4 Mg/1 Ml Inj) 4 mg IV Q4H PRN PRN Reason: Pain , Severe (7-10) Ondansetron HCl (Ondansetron 4 Mg/2 Ml Inj) 4 mg IV Q8H PRN PRN Reason: Nausea And Vomiting Sodium Chloride (Sodium Chloride 0.9% 10 Ml Flush Syringe) 10 ml IV PRN NR Stop: 11/15/21 14:59 Review of Systems Constitutional: no weight loss, no weight gain, no fever, no chills Ears, nose, mouth and throat: no ear pain, no ear discharge, no nasal congestion Breasts: no change in shape, no swelling, no mass Cardiovascular: no chest pain, no orthopnea, no rapid/irregular heart beat, no edema Respiratory: no cough, no cough with sputum Gastrointestinal: no abdominal pain, no nausea, no vomiting, no constipation Genitourinary Female: no pelvic pain, no flank pain, no dysuria, no urinary frequency, no stress incontinence Rectal: no pain, no incontinence, no bleeding Musculoskeletal: no neck stiffness, no neck pain, no arm numbness/tingling Integumentary: no rash, no redness, no sores, no wounds, no jaundice Neurological: no head injury, no transient paralysis, no paralysis, no weakness, no numbness Psychiatric: no anxiety, no sleep disturbances, no insomnia, no hypersomnia Endocrine: no cold intolerance, no polyphagia, no polydipsia, no nocturia Hematologic/Lymphatic: no easy bruising, no easy bleeding Allergic/Immunologic: no urticaria, no allergic rhinitis Exam - Constitutional Vitals: Temp Pulse Resp BP Pulse Ox 100.5 F H 102 H 16 87/41 100 11/09/21 10:27 11/09/21 10:27 11/09/21 10:27 11/09/21 10:11/09/21 10:29 General appearance: Present: no acute distress - EENT Eyes: Present: PERRL ENT: hearing intact, clear oral mucosa - Neck Neck: Present: supple, normal ROM - Respiratory Respiratory effort: normal Respiratory: bilateral: CTA - Cardiovascular Heart Sounds: Present: S1 & S2. Absent: rub, click - Extremities Extremities: pulses symmetrical, No edema Peripheral Pulses: within normal limits - Abdominal General gastrointestinal: Present: soft, non-tender, non-distended, normal bowel sounds Female genitourinary: Present: normal - Integumentary Integumentary: Present: clear, warm, dry - Musculoskeletal Musculoskeletal: gait normal, strength equal bilaterally - Psychiatric Psychiatric: appropriate mood/affect, intact judgment & insight - Neurologic Neurologic: CNII-XII intact, moves all extremities Results - Labs CBC & Chem 7: 11/09/21 17:26 11/05/21 00:01 Assessment and Plan - Patient Problems (1) Pneumonia Current Visit: Yes Status: Acute Plan to address problem: Pneumonia protocol: Chest x-ray, CBC, CMP, supplemental oxygen, pulse oximetry, nebulizer therapy, pulmonary toilet. Incentive spirometry. (2) Hypertension Current Visit: Yes Status: Acute Qualifiers: Hypertension type: primary hypertension Qualified Code(s): I10 - Essential (primary) hypertension Plan to address problem: Patient currently hypotensive. Hold antihypertensive therapy at this time. (3) Osteoarthritis Current Visit: Yes Status: Acute Plan to address problem: Patient status post surgical intervention. Supportive care, pain control. (4) Hyperlipidemia Current Visit: Yes Status: Acute Qualifiers: Hyperlipidemia type: mixed hyperlipidemia Qualified Code(s): E78.2 - Mixed hyperlipidemia Plan to address problem: Low-cholesterol diet, supportive care. (5) Vascular dementia Current Visit: Yes Status: Acute Qualifiers: Dementia behavioral disturbance: without behavioral disturbance Qualified Code(s): F01.50 - Vascular dementia without behavioral disturbance Plan to address problem: Verbal prompting, verbal redirection, benzodiazepine therapy as clinically indicated. (6) Cerebral atherosclerosis Current Visit: Yes Status: Acute Plan to address problem: Risk factor reduction, antiplatelet therapy as clinically indicated. (7) DVT prophylaxis Current Visit: Yes Status: Acute Plan to address problem: SCD to bilateral lower extremities while in bed (8) Advance care planning Current Visit: Yes Status: Acute Plan to address problem: Disease education done, care plan discussed, diagnoses discussed, prognosis discussed, patient is full code. Patient knowledges understanding agreement with care plan, +30 minutes. (9) Preventative health care Current Visit: Yes Status: Acute Plan to address problem: Patient counseled regarding home safety, low-cholesterol diet, patient to follow-up with primary care physician for all age and risk factor appropriate screening test. +30 minutes.
[2021-11-09] MEDS ORDERED: SODIUM CHLORIDE 0.9% 1000 ML 1,000 ML IV ONE (12:15)
[2021-11-09] MEDS ORDERED: SODIUM CHLORIDE 0.9% 500 ML IVPB IV ONE (12:16)
[2021-11-09] MEDS: ENOXAPARIN 40 MG/0.4 ML INJ SUB-Q SCH (12:35)
--- NOTE | 2021-11-09 12:51 | XRay Report ---
CHEST 1 VIEW 11/09/2021 11:45 AM INDICATION / CLINICAL INFORMATION: fever. COMPARISON: None available. FINDINGS: SUPPORT DEVICES: Pacemaker and leads are satisfactory in position HEART / MEDIASTINUM: No significant abnormality. LUNGS / PLEURA: Mild interstitial prominence adjacent right cardiac border. No focal air consolidatio n No pneumothorax. Signer Name: Stu Desir MD Signed: 11/09/2021 12:47 PM Workstation Name: [id number]
[2021-11-09] MEDS ORDERED: AZITHROMYCIN/NS 500 MG/250 ML 500 MG/250 ML BAG IV SCH (14:00)
[2021-11-09] MEDS: cefTRIAXone/NS 2 GM/100 ML 2 GM/100 ML BAG IV SCH (15:51)
[2021-11-09 18:40] LABS: Basophils % (Auto) 0.3 % (0.0-1.8); Eosinophils # (Auto) 0.1 K/mm3 (0.0-0.4); Eosinophils % (Auto) 1.1 % (0.0-4.3); Hematocrit 31.8 % (30.3-42.9); Hemoglobin 10.2 gm/dl (10.1-14.3); Lymphocytes # (Auto) 1.6 K/mm3 (1.2-5.4); Mean Corpuscular HGB Conc 32 % (30-34); Mean Corpuscular Volume 90 fl (79-97); Monocytes # (Auto) 0.8 K/mm3 (0.0-0.8); Monocytes % (Auto) 7.1 % (0.0-7.3); Platelet Count 129 K/mm3 (140-440); Red Blood Count 3.52 M/mm3 (3.65-5.03); Red Cell Distribution Width 13.9 % (13.2-15.2)
[2021-11-09] MEDS: KETOROLAC 30 MG/1 ML INJ IV PRN (19:25)
[2021-11-09] MEDS: PANTOPRAZOLE 40 MG TAB PO SCH (22:04)
[2021-11-09] MEDS: IBUPROFEN 800 MG TAB PO PRN (22:09)
[2021-11-10 07:59] LABS: Basophils # (Auto) 0.1 K/mm3 (0.0-0.1); Basophils % (Auto) 0.6 % (0.0-1.8); Eosinophils # (Auto) 0.2 K/mm3 (0.0-0.4); Eosinophils % (Auto) 2.2 % (0.0-4.3); Hematocrit 32.4 % (30.3-42.9); Hemoglobin 10.4 gm/dl (10.1-14.3); Lymphocytes # (Auto) 1.3 K/mm3 (1.2-5.4); Lymphocytes % (Auto) 13.4 % (13.4-35.0); Mean Corpuscular HGB Conc 32 % (30-34); Mean Corpuscular Volume 89 fl (79-97); Monocytes # (Auto) 0.8 K/mm3 (0.0-0.8); Monocytes % (Auto) 8.4 % (0.0-7.3); Platelet Count 132 K/mm3 (140-440); Red Blood Count 3.65 M/mm3 (3.65-5.03); Red Cell Distribution Width 13.9 % (13.2-15.2)
[2021-11-10 08:11] LABS: BUN/Creatinine Ratio 24; Blood Urea Nitrogen 17 mg/dL (7-17); Calcium 8.8 mg/dL (8.4-10.2); Hemolysis Index 5
[2021-11-10] MEDS: PANTOPRAZOLE 40 MG TAB PO SCH ×2 (10:17→21:26)
[2021-11-10] MEDS: ENOXAPARIN 40 MG/0.4 ML INJ SUB-Q SCH (10:17)
[2021-11-10] MEDS: AZITHROMYCIN 250 MG TAB PO SCH (10:18)
[2021-11-10] MEDS: IBUPROFEN 800 MG TAB PO PRN ×2 (10:28→18:37)
--- NOTE | 2021-11-10 10:54 | Progress Note ---
Assessment and Plan Assessment and plan: 76 YO Female with Vascular Dementia, Cerebral Atherosclerosis, OA, HTN, HLD, CHF(EF 25%), Cardiomyopathy S/P ICD Placement admitted for elective THR. Consult placed by Dr. Ceron for medical management. Patient found to be hypotensive with a systolic blood pressure in the 80s. Patient treated with IV fluid resuscitation therapy and infectious work-up. SIRS. Hypertension Osteoarthritis s/p total hip replacement Hyperlipidemia Vascular dementia Cerebral atherosclerosis 11/10/2021. Patient was noted to be febrile, tachycardic and hypotensive yesterday. However, no infectious etiology identified. Chest x-ray is negative and blood cultures, urinalysis are pending. Continue empiric IV antibiotics History Interval history: No new issues overnight Hospitalist Physical - Constitutional Vitals: Temp Pulse Resp BP Pulse Ox 99.2 F 97 H 16 134/77 98 11/10/21 10:43 11/10/21 10:43 11/10/21 10:43 11/10/21 10:43 11/10/21 10:43 General appearance: Present: no acute distress - EENT Eyes: Present: PERRL, EOM intact ENT: hearing intact, clear oral mucosa, dentition normal - Neck Neck: Present: supple, normal ROM - Respiratory Respiratory effort: normal Respiratory: bilateral: CTA - Cardiovascular Rhythm: regular Heart Sounds: Present: S1 & S2. Absent: gallop, rub - Extremities Extremities: no ischemia, No edema, Full ROM - Abdominal General gastrointestinal: soft, non-tender, non-distended, normal bowel sounds - Integumentary Integumentary: Present: clear, warm, dry - Neurologic Neurologic: CNII-XII intact, moves all extremities Results - Labs CBC & Chem 7: 11/10/21 07:24 11/10/21 07:24 Labs: Laboratory Last Values WBC 9.6 K/mm3 (4.5-11.0) 11/10/21 07:24 RBC 3.65 M/mm3 (3.65-5.03) 11/10/21 07:24 Hgb 10.4 gm/dl (10.1-14.3) 11/10/21 07:24 Hct 32.4 % (30.3-42.9) 11/10/21 07:24 MCV 89 fl (79-97) 11/10/21 07:24 MCH 29 pg (28-32) 11/10/21 07:24 MCHC 32 % (30-34) 11/10/21 07:24 RDW 13.9 % (13.2-15.2) 11/10/21 07:24 Plt Count 132 K/mm3 (140-440) L 11/10/21 07:24 Lymph % (Auto) 13.4 % (13.4-35.0) 11/10/21 07:24 [place] % (Auto) 8.4 % (0.0-7.3) H 11/10/21 07:24 Eos % (Auto) 2.2 % (0.0-4.3) 11/10/21 07:24 Baso % (Auto) 0.6 % (0.0-1.8) 11/10/21 07:24 Lymph # (Auto) 1.3 K/mm3 (1.2-5.4) 11/10/21 07:24 [place] # (Auto) 0.8 K/mm3 (0.0-0.8) 11/10/21 07:24 Eos # (Auto) 0.2 K/mm3 (0.0-0.4) 11/10/21 07:24 Baso # (Auto) 0.1 K/mm3 (0.0-0.1) 11/10/21 07:24 Seg Neutrophils % 75.4 % (40.0-70.0) H 11/10/21 07:24 Seg Neutrophils # 7.2 K/mm3 (1.8-7.7) 11/10/21 07:24 Sodium 140 mmol/L (137-145) 11/10/21 07:24 Potassium 3.9 mmol/L (3.6-5.0) 11/10/21 07:24 Chloride 107.5 mmol/L (98-107) H 11/10/21 07:24 Carbon Dioxide 23 mmol/L (22-30) 11/10/21 07:24 Anion Gap 13 mmol/L 11/10/21 07:24 BUN 17 mg/dL (7-17) 11/10/21 07:24 Creatinine 0.7 mg/dL (0.6-1.2) 11/10/21 07:24 Estimated GFR > 60 ml/min 11/10/21 07:24 BUN/Creatinine Ratio 24 % 11/10/21 07:24 Glucose 104 mg/dL (65-100) H 11/10/21 07:24 Calcium 8.8 mg/dL (8.4-10.2) 11/10/21 07:24 NT-Pro-B Natriuret Pep 122.0 pg/mL (0-900) 11/09/21 17:26 SARS-CoV-2 (PCR) Negative (Negative) 11/05/21 10:35 Blood Type O POSITIVE 11/08/21 10:45 Antibody Screen Positive 11/08/21 10:45 Antibody Identification Anti-K 11/08/21 10:45 Microbiology: Microbiology 11/09/21 17:26 Peripheral/Venous Blood Culture - Preliminary Culture in Progress 11/09/21 17:26 Peripheral/Venous Blood Culture - Preliminary Culture in Progress Mendoza/IV: Voiding Method External Female Catheter Active Medications - Current Medications Current Medications: Generic Name Dose Route Start Last Admin Trade Name Freq PRN Reason Stop Dose Admin Acetaminophen 650 mg 11/08/21 14:22 11/09/21 15:50 Acetaminophen 325 Mg Tab PO 650 mg Q4H PRN Administration Pain MILD(1-3)/Fever >100.5/SHARMA Atorvastatin Calcium 40 mg 11/09/21 22:00 11/09/21 22:05 Atorvastatin 40 Mg Tab PO 40 mg QHS MITUL Administration Azithromycin 500 mg 11/10/21 10:00 11/10/21 10:18 Azithromycin 250 Mg Tab PO 11/13/21 10:59 500 mg QDAY MITUL Administration Enoxaparin Sodium 40 mg 11/09/21 10:00 11/10/21 10:17 Enoxaparin 40 Mg/0.4 Ml Inj SUB-Q 40 mg QDAY MITUL Administration Ceftriaxone Sodium 2 gm in 100 mls @ 200 mls/hr 11/09/21 14:00 11/09/21 15:51 Rocephin/Ns 2 Gm/100 Ml IV 11/13/21 18:59 200 mls/hr Q24H MITUL Administration Protocol Ibuprofen 800 mg 11/08/21 14:22 11/10/21 10:28 Ibuprofen 800 Mg Tab PO 800 mg Q8H PRN Administration Pain, Moderate (4-6) Ketorolac Tromethamine 15 mg 11/08/21 14:22 11/09/21 19:25 Ketorolac 30 Mg/1 Ml Inj IV 11/13/21 14:21 15 mg Q6H PRN Administration Pain, Moderate (4-6) Ondansetron HCl 4 mg 11/08/21 14:22 Ondansetron 4 Mg/2 Ml Inj IV Q8H PRN Nausea And Vomiting Pantoprazole Sodium 40 mg 11/09/21 22:00 11/10/21 10:17 Pantoprazole 40 Mg Tab PO 40 mg BID MITUL Administration Sodium Chloride 10 ml 11/08/21 15:00 11/09/21 22:05 Sodium Chloride 0.9% 10 Ml Flush Syringe IV 11/15/21 14:59 10 ml PRN NR Administration
[2021-11-10] MEDS: cefTRIAXone/NS 2 GM/100 ML 2 GM/100 ML BAG IV SCH (15:44)
[2021-11-10] MEDS: KETOROLAC 30 MG/1 ML INJ IV PRN (15:44)
--- NOTE | 2021-11-10 20:03 | Progress Note ---
Assessment and Plan s/p left total hip replacement Subjective Date of service: 11/10/21 Interval history: c/o incisional pain, otherwise ok... Objective Vital signs: Vital Signs - 12hr 11/10/21 11/10/21 11/10/21 10:00 10:43 17:56 Temperature 99.2 F 99.2 F Pulse Rate 97 H 102 H Respiratory 16 20 Rate Blood Pressure 134/79 Blood Pressure 134/77 [Right] O2 Sat by Pulse 99 98 97 Oximetry Narrative Exam: BP better today Incision: clean and dry Weight bearing status: as tolerated - Labs CBC & BMP: 11/10/21 07:24 11/10/21 07:24 Labs: Abnormal lab results 11/10/21 11/10/21 Range/Units 07:24 07:24 Plt Count 132 L (140-440) K/mm3 [place] % (Auto) 8.4 H (0.0-7.3) % Seg Neutrophils % 75.4 H (40.0-70.0) % Chloride 107.5 H (98-107) mmol/L Glucose 104 H (65-100) mg/dL
[2021-11-11] MEDS: IBUPROFEN 800 MG TAB PO PRN ×2 (01:34→15:00)
[2021-11-11] MEDS: KETOROLAC 30 MG/1 ML INJ IV PRN (05:10)
[2021-11-11 05:49] LABS: Basophils % (Auto) 0.3 % (0.0-1.8); Eosinophils # (Auto) 0.3 K/mm3 (0.0-0.4); Hematocrit 29.4 % (30.3-42.9); Hemoglobin 9.7 gm/dl (10.1-14.3); Lymphocytes # (Auto) 1.6 K/mm3 (1.2-5.4); Lymphocytes % (Auto) 18.2 % (13.4-35.0); Mean Corpuscular HGB Conc 33 % (30-34); Mean Corpuscular Volume 89 fl (79-97); Monocytes # (Auto) 0.9 K/mm3 (0.0-0.8); Monocytes % (Auto) 9.8 % (0.0-7.3); Platelet Count 118 K/mm3 (140-440); Red Blood Count 3.32 M/mm3 (3.65-5.03)
[2021-11-11 05:58] LABS: Blood Urea Nitrogen 11 mg/dL (7-17); Calcium 8.6 mg/dL (8.4-10.2); Hemolysis Index 9
[2021-11-11 06:04] LABS: BUN/Creatinine Ratio 18
--- NOTE | 2021-11-11 09:24 | Progress Note ---
Assessment and Plan Assessment and plan: 76 YO Female with Vascular Dementia, Cerebral Atherosclerosis, OA, HTN, HLD, CHF(EF 25%), Cardiomyopathy S/P ICD Placement admitted for elective THR. Consult placed by Dr. Ceron for medical management. Patient found to be hypotensive with a systolic blood pressure in the 80s. Patient treated with IV fluid resuscitation therapy and infectious work-up. SIRS. Hypertension Osteoarthritis s/p total hip replacement Hyperlipidemia Vascular dementia Cerebral atherosclerosis 11/10/2021. Patient was noted to be febrile, tachycardic and hypotensive yesterday. However, no infectious etiology identified. Chest x-ray is negative and blood cultures, urinalysis are pending. Continue empiric IV antibiotics 11/11/2021. Patient noted to have SIRS postoperatively but no obvious source of infection. However, still awaiting urinalysis. Blood cultures no growth to date x24 hours. Continue empiric antibiotics for now. Await physical therapy evaluation History Interval history: No new issues overnight Hospitalist Physical - Constitutional Vitals: Temp Pulse Resp BP Pulse Ox 98.9 F 100 H 18 139/73 97 11/11/21 05:07 11/11/21 05:08 11/11/21 05:07 11/11/21 05:07 11/10/21 21:30 General appearance: Present: no acute distress - EENT Eyes: Present: PERRL, EOM intact ENT: hearing intact, clear oral mucosa, dentition normal - Neck Neck: Present: supple, normal ROM - Respiratory Respiratory effort: normal Respiratory: bilateral: CTA - Cardiovascular Rhythm: regular Heart Sounds: Present: S1 & S2. Absent: gallop, rub - Extremities Extremities: no ischemia, No edema, Full ROM - Abdominal General gastrointestinal: soft, non-tender, non-distended, normal bowel sounds - Integumentary Integumentary: Present: clear, warm, dry - Neurologic Neurologic: CNII-XII intact, moves all extremities Results - Labs CBC & Chem 7: 11/11/21 04:52 11/11/21 04:52 Labs: Laboratory Last Values WBC 8.9 K/mm3 (4.5-11.0) 11/11/21 04:52 RBC 3.32 M/mm3 (3.65-5.03) L 11/11/21 04:52 Hgb 9.7 gm/dl (10.1-14.3) L 11/11/21 04:52 Hct 29.4 % (30.3-42.9) L 11/11/21 04:52 MCV 89 fl (79-97) 11/11/21 04:52 MCH 29 pg (28-32) 11/11/21 04:52 MCHC 33 % (30-34) 11/11/21 04:52 RDW 14.0 % (13.2-15.2) 11/11/21 04:52 Plt Count 118 K/mm3 (140-440) L 11/11/21 04:52 Lymph % (Auto) 18.2 % (13.4-35.0) 11/11/21 04:52 [place] % (Auto) 9.8 % (0.0-7.3) H 11/11/21 04:52 Eos % (Auto) 3.0 % (0.0-4.3) 11/11/21 04:52 Baso % (Auto) 0.3 % (0.0-1.8) 11/11/21 04:52 Lymph # (Auto) 1.6 K/mm3 (1.2-5.4) 11/11/21 04:52 [place] # (Auto) 0.9 K/mm3 (0.0-0.8) H 11/11/21 04:52 Eos # (Auto) 0.3 K/mm3 (0.0-0.4) 11/11/21 04:52 Baso # (Auto) 0.0 K/mm3 (0.0-0.1) 11/11/21 04:52 Seg Neutrophils % 68.7 % (40.0-70.0) 11/11/21 04:52 Seg Neutrophils # 6.1 K/mm3 (1.8-7.7) 11/11/21 04:52 Sodium 142 mmol/L (137-145) 11/11/21 04:52 Potassium 3.9 mmol/L (3.6-5.0) 11/11/21 04:52 Chloride 108.3 mmol/L (98-107) H 11/11/21 04:52 Carbon Dioxide 24 mmol/L (22-30) 11/11/21 04:52 Anion Gap 14 mmol/L 11/11/21 04:52 BUN 11 mg/dL (7-17) 11/11/21 04:52 Creatinine 0.6 mg/dL (0.6-1.2) 11/11/21 04:52 Estimated GFR > 60 ml/min 11/11/21 04:52 BUN/Creatinine Ratio 18 % 11/11/21 04:52 Glucose 105 mg/dL (65-100) H 11/11/21 04:52 Calcium 8.6 mg/dL (8.4-10.2) 11/11/21 04:52 NT-Pro-B Natriuret Pep 122.0 pg/mL (0-900) 11/09/21 17:26 SARS-CoV-2 (PCR) Negative (Negative) 11/05/21 10:35 Blood Type O POSITIVE 11/08/21 10:45 Antibody Screen Positive 11/08/21 10:45 Antibody Identification Anti-K 11/08/21 10:45 Microbiology: Microbiology 11/09/21 17:26 Peripheral/Venous Blood Culture - Preliminary NO GROWTH AFTER 24 HOURS 11/09/21 17:26 Peripheral/Venous Blood Culture - Preliminary NO GROWTH AFTER 24 HOURS Mendoza/IV: Voiding Method External Female Catheter Active Medications - Current Medications Current Medications: Generic Name Dose Route Start Last Admin Trade Name Freq PRN Reason Stop Dose Admin Acetaminophen 650 mg 11/08/21 14:22 11/09/21 15:50 Acetaminophen 325 Mg Tab PO 650 mg Q4H PRN Administration Pain MILD(1-3)/Fever >100.5/SHARMA Atorvastatin Calcium 40 mg 11/09/21 22:00 11/10/21 21:26 Atorvastatin 40 Mg Tab PO 40 mg QHS MITUL Administration Azithromycin 500 mg 11/10/21 10:00 11/10/21 10:18 Azithromycin 250 Mg Tab PO 11/13/21 10:59 500 mg QDAY MITUL Administration Enoxaparin Sodium 40 mg 11/09/21 10:00 11/10/21 10:17 Enoxaparin 40 Mg/0.4 Ml Inj SUB-Q 40 mg QDAY MITUL Administration Ceftriaxone Sodium 2 gm in 100 mls @ 200 mls/hr 11/09/21 14:00 11/10/21 15:44 Rocephin/Ns 2 Gm/100 Ml IV 11/13/21 18:59 200 mls/hr Q24H MITUL Administration Protocol Ibuprofen 800 mg 11/08/21 14:22 11/11/21 01:34 Ibuprofen 800 Mg Tab PO 800 mg Q8H PRN Administration Pain, Moderate (4-6) Ketorolac Tromethamine 15 mg 11/08/21 14:22 11/11/21 05:10 Ketorolac 30 Mg/1 Ml Inj IV 11/13/21 14:21 15 mg Q6H PRN Administration Pain, Moderate (4-6) Ondansetron HCl 4 mg 11/08/21 14:22 Ondansetron 4 Mg/2 Ml Inj IV Q8H PRN Nausea And Vomiting Pantoprazole Sodium 40 mg 11/09/21 22:00 11/10/21 21:26 Pantoprazole 40 Mg Tab PO 40 mg BID MITUL Administration Sodium Chloride 10 ml 11/08/21 15:00 11/10/21 21:26 Sodium Chloride 0.9% 10 Ml Flush Syringe IV 11/15/21 14:59 10 ml PRN NR Administration
[2021-11-11] MEDS: PANTOPRAZOLE 40 MG TAB PO SCH ×2 (11:00→21:50)
[2021-11-11] MEDS: ENOXAPARIN 40 MG/0.4 ML INJ SUB-Q SCH (11:00)
[2021-11-11] MEDS: AZITHROMYCIN 250 MG TAB PO SCH (11:59)
[2021-11-11] MEDS: cefTRIAXone/NS 2 GM/100 ML 2 GM/100 ML BAG IV SCH (14:01)
[2021-11-12] MEDS: IBUPROFEN 800 MG TAB PO PRN ×2 (00:30→18:40)
[2021-11-12 08:18] LABS: Basophils % (Auto) 0.5 % (0.0-1.8); Eosinophils # (Auto) 0.4 K/mm3 (0.0-0.4); Eosinophils % (Auto) 4.1 % (0.0-4.3); Hematocrit 29.4 % (30.3-42.9); Hemoglobin 9.6 gm/dl (10.1-14.3); Lymphocytes # (Auto) 1.7 K/mm3 (1.2-5.4); Lymphocytes % (Auto) 19.9 % (13.4-35.0); Mean Corpuscular HGB Conc 33 % (30-34); Mean Corpuscular Volume 88 fl (79-97); Monocytes # (Auto) 0.9 K/mm3 (0.0-0.8); Monocytes % (Auto) 10.6 % (0.0-7.3); Platelet Count 154 K/mm3 (140-440); Red Blood Count 3.35 M/mm3 (3.65-5.03); Red Cell Distribution Width 13.9 % (13.2-15.2)
[2021-11-12 08:43] LABS: Blood Urea Nitrogen 16 mg/dL (7-17); Calcium 8.9 mg/dL (8.4-10.2); Hemolysis Index 28
[2021-11-12 08:49] LABS: BUN/Creatinine Ratio 23
[2021-11-12] MEDS: PANTOPRAZOLE 40 MG TAB PO SCH (09:10)
[2021-11-12] MEDS: AZITHROMYCIN 250 MG TAB PO SCH (09:10)
[2021-11-12] MEDS: ENOXAPARIN 40 MG/0.4 ML INJ SUB-Q SCH (09:10)
[2021-11-12] MEDS ORDERED: carvediloL 6.25 MG TAB PO SCH (10:00)
[2021-11-12] MEDS ORDERED: SPIRONOLACTONE 25 MG TAB PO SCH (10:00)
[2021-11-12] MEDS ORDERED: NON-FORMULARY EACH (Losartan [Cozaar] 100 MG Tablet) PO SCH (10:00)
[2021-11-12] MEDS ORDERED: carvediloL 12.5 MG TAB PO SCH (10:00)
[2021-11-12] MEDS ORDERED: LOSARTAN 50 MG TAB PO SCH (10:00)
--- NOTE | 2021-11-12 11:22 | Progress Note ---
Assessment and Plan Assessment and plan: 76 YO Female with Vascular Dementia, Cerebral Atherosclerosis, OA, HTN, HLD, CHF(EF 25%), Cardiomyopathy S/P ICD Placement admitted for elective THR. Consult placed by Dr. Ceron for medical management. Patient found to be hypotensive with a systolic blood pressure in the 80s. Patient treated with IV fluid resuscitation therapy and infectious work-up. Assessement SIRS - not present on admission, post operatively found doubt infectious etiology Hypertension Post Operative fever - doubt infectious etiology, transient. Osteoarthritis s/p total hip replacement Hyperlipidemia Vascular dementia Cerebral atherosclerosis 11/10/2021. Patient was noted to be febrile, tachycardic and hypotensive yesterday. However, no infectious etiology identified. Chest x-ray is negative and blood cultures, urinalysis are pending. Continue empiric IV antibiotics 11/11/2021. Patient noted to have SIRS postoperatively but no obvious source of infection. However, still awaiting urinalysis. Blood cultures no growth to date x24 hours. Continue empiric antibiotics for now. Await physical therapy evaluation 11/12/2021: Doubt infectious etiology, denies urinary or pulmonary symptomology, Normal wbc count, CXR clear. Discontinue rocephin IV. Suspect post op fever was transient. Home beta rebecca not restarted this admission. Restart home cardiac medications (coreg, losartan, spironalactone) except for lasix and cardura. Can likely restart those medications if BP is stable and patietn saeed snot have complaints of orthostasis. PT notes . Ok from medicine standpoint for discharge. Recommend dvt ppx with xarelto 10 mg x 30 days or alternatively lovenox on d/c. History Interval history: Pleasant women on encounter. No acute complaints. Denies fevers, chills, dysuria, sob, chest pain. Hospitalist Physical - Physical exam Narrative exam: General appearance: Present: no acute distress - EENT Eyes: Present: PERRL, EOM intact ENT: hearing intact, clear oral mucosa, dentition normal - Neck Neck: Present: supple, normal ROM - Respiratory Respiratory effort: normal Respiratory: bilateral: CTA - Cardiovascular Rhythm: regular Heart Sounds: Present: S1 & S2. Absent: gallop, rub - Extremities Extremities: no ischemia, No edema, Full ROM - Abdominal General gastrointestinal: soft, non-tender, non-distended, normal bowel sounds - Integumentary Integumentary: Present: clear, warm, dry - Neurologic Neurologic: CNII-XII intact, moves all extremities - Constitutional Vitals: Temp Pulse Resp BP Pulse Ox 98.6 F 91 H 20 142/88 98 11/12/21 05:58 11/12/21 09:16 11/12/21 09:16 11/12/21 09:16 11/12/21 08:01 General appearance: Present: no acute distress Results - Labs CBC & Chem 7: 11/12/21 06:44 11/12/21 06:44 Labs: Laboratory Last Values WBC 8.6 K/mm3 (4.5-11.0) 11/12/21 06:44 RBC 3.35 M/mm3 (3.65-5.03) L 11/12/21 06:44 Hgb 9.6 gm/dl (10.1-14.3) L 11/12/21 06:44 Hct 29.4 % (30.3-42.9) L 11/12/21 06:44 MCV 88 fl (79-97) 11/12/21 06:44 MCH 29 pg (28-32) 11/12/21 06:44 MCHC 33 % (30-34) 11/12/21 06:44 RDW 13.9 % (13.2-15.2) 11/12/21 06:44 Plt Count 154 K/mm3 (140-440) 11/12/21 06:44 Lymph % (Auto) 19.9 % (13.4-35.0) 11/12/21 06:44 [place] % (Auto) 10.6 % (0.0-7.3) H 11/12/21 06:44 Eos % (Auto) 4.1 % (0.0-4.3) 11/12/21 06:44 Baso % (Auto) 0.5 % (0.0-1.8) 11/12/21 06:44 Lymph # (Auto) 1.7 K/mm3 (1.2-5.4) 11/12/21 06:44 [place] # (Auto) 0.9 K/mm3 (0.0-0.8) H 11/12/21 06:44 Eos # (Auto) 0.4 K/mm3 (0.0-0.4) 11/12/21 06:44 Baso # (Auto) 0.0 K/mm3 (0.0-0.1) 11/12/21 06:44 Seg Neutrophils % 64.9 % (40.0-70.0) 11/12/21 06:44 Seg Neutrophils # 5.6 K/mm3 (1.8-7.7) 11/12/21 06:44 Sodium 143 mmol/L (137-145) 11/12/21 06:44 Potassium 4.0 mmol/L (3.6-5.0) 11/12/21 06:44 Chloride 108.0 mmol/L (98-107) H 11/12/21 06:44 Carbon Dioxide 25 mmol/L (22-30) 11/12/21 06:44 Anion Gap 14 mmol/L 11/12/21 06:44 BUN 16 mg/dL (7-17) 11/12/21 06:44 Creatinine 0.7 mg/dL (0.6-1.2) 11/12/21 06:44 Estimated GFR > 60 ml/min 11/12/21 06:44 BUN/Creatinine Ratio 23 % 11/12/21 06:44 Glucose 98 mg/dL (65-100) 11/12/21 06:44 Calcium 8.9 mg/dL (8.4-10.2) 11/12/21 06:44 NT-Pro-B Natriuret Pep 122.0 pg/mL (0-900) 11/09/21 17:26 SARS-CoV-2 (PCR) Negative (Negative) 11/05/21 10:35 Blood Type O POSITIVE 11/08/21 10:45 Antibody Screen Positive 11/08/21 10:45 Antibody Identification Anti-K 11/08/21 10:45 Microbiology: Microbiology 11/09/21 17:26 Peripheral/Venous Blood Culture - Preliminary NO GROWTH AFTER 48 HOURS 11/09/21 17:26 Peripheral/Venous Blood Culture - Preliminary NO GROWTH AFTER 48 HOURS Mendoza/IV: Voiding Method External Female Catheter Active Medications - Current Medications Current Medications: Generic Name Dose Route Start Last Admin Trade Name Freq PRN Reason Stop Dose Admin Acetaminophen 650 mg 11/08/21 14:22 11/09/21 15:50 Acetaminophen 325 Mg Tab PO 650 mg Q4H PRN Administration Pain MILD(1-3)/Fever >100.5/SHARMA Atorvastatin Calcium 40 mg 11/09/21 22:00 11/11/21 21:50 Atorvastatin 40 Mg Tab PO 40 mg QHS MITUL Administration Azithromycin 500 mg 11/10/21 10:00 11/12/21 09:10 Azithromycin 250 Mg Tab PO 11/13/21 10:59 500 mg QDAY MITUL Administration Carvedilol 12.5 mg 11/12/21 10:00 11/12/21 09:11 Carvedilol 12.5 Mg Tab PO 12.5 mg BID MITUL Administration Enoxaparin Sodium 40 mg 11/09/21 10:00 11/12/21 09:10 Enoxaparin 40 Mg/0.4 Ml Inj SUB-Q 40 mg QDAY MITUL Administration Ceftriaxone Sodium 2 gm in 100 mls @ 200 mls/hr 11/09/21 14:00 11/11/21 14:01 Rocephin/Ns 2 Gm/100 Ml IV 11/13/21 18:59 200 mls/hr Q24H MITUL Administration Protocol Ibuprofen 800 mg 11/08/21 14:22 11/12/21 00:30 Ibuprofen 800 Mg Tab PO 800 mg Q8H PRN Administration Pain, Moderate (4-6) Ketorolac Tromethamine 15 mg 11/08/21 14:22 11/11/21 05:10 Ketorolac 30 Mg/1 Ml Inj IV 11/13/21 14:21 15 mg Q6H PRN Administration Pain, Moderate (4-6) Losartan Potassium 100 mg 11/12/21 10:00 11/12/21 09:10 Losartan 50 Mg Tab PO 100 mg QDAY MITUL Administration Ondansetron HCl 4 mg 11/08/21 14:22 Ondansetron 4 Mg/2 Ml Inj IV Q8H PRN Nausea And Vomiting Pantoprazole Sodium 40 mg 11/09/21 22:00 11/12/21 09:10 Pantoprazole 40 Mg Tab PO 40 mg BID MITUL Administration Sodium Chloride 10 ml 11/08/21 15:00 11/12/21 09:11 Sodium Chloride 0.9% 10 Ml Flush Syringe IV 11/15/21 14:59 10 ml PRN NR Administration Spironolactone 25 mg 11/12/21 10:00 11/12/21 09:10 Spironolactone 25 Mg Tab PO 25 mg QDAY MITUL Administration
--- NOTE | 2021-11-12 14:01 | Discharge Summary ---
Providers - Providers Date of Admission: 11/08/21 14:22 Date of discharge: 11/12/21 Attending physician: THOMAS DUPONT MD 11/08/21 14:23 Consult to Case Management [CONS] Routine Services Needed at Discharge: Other Notified:: yes Additional Physician Instructions: Assess Discharge needs. Physical Therapy Evaluation and Treat [CONS] Routine Comment: Reason For Exam: Eval and Treat 11/11/21 09:23 Physical Therapy Evaluation and Treat [CONS] Routine Comment: Reason For Exam: THR Primary care physician: PREETHI SPIVEY MD Hospitalization Disposition: 30 STILL A PATIENT Exam - Constitutional Vitals: Temp Pulse Resp BP Pulse Ox 98.0 F 72 18 131/84 100 11/12/21 11:52 11/12/21 11:52 11/12/21 11:52 11/12/21 11:52 11/12/21 11:52 Plan Follow up with: PREETHI SPIVEY MD [Primary Care Provider] - 7 Days Prescriptions: Apixaban [Eliquis] 5 mg PO DAILY #30 Oxycodone HCl/Acetaminophen [Percocet 10/325 mg] 1 each PO Q6HR PRN #30 PRN Reason: Pain
[2021-11-12 18:33] VITALS: BP 126/81
== END 2021-11-12 21:15 | disposition home health service (06) | DRG 470 ==
LOC: OR 09:49 → EDSTATUS 12:00 → 3A 14:22
PROVIDERS: ADMIT Orthopaedic Surgery; ATTEND Orthopaedic Surgery
PROC: 0SRB0JZ Replacement of Left Hip Joint with Synthetic Substitute, Open Approach (ICD-10-PCS; principal; 2021-11-08)
DX: M16.12 Unilateral primary osteoarthritis, left hip (principal); Z20.822 Contact with and (suspected) exposure to COVID-19; R65.10 Systemic inflammatory response syndrome (SIRS) of non-infectious origin without acute organ dysfunction; I42.9 Cardiomyopathy, unspecified; F01.50 Vascular dementia, unspecified severity, without behavioral disturbance, psychotic disturbance, mood disturbance, and anxiety; I67.2 Cerebral atherosclerosis; I11.0 Hypertensive heart disease with heart failure; I50.9 Heart failure, unspecified; E78.5 Hyperlipidemia, unspecified; Z88.6 Allergy status to analgesic agent; Z88.8 Allergy status to other drugs, medicaments and biological substances; Z95.810 Presence of automatic (implantable) cardiac defibrillator; Z83.3 Family history of diabetes mellitus; Z82.49 Family history of ischemic heart disease and other diseases of the circulatory system; Z79.82 Long term (current) use of aspirin; Z79.899 Other long term (current) drug therapy
CPT/HCPCS: 36415; 64450; 71045; 80048; 83880; 85014; 85018; 85025; 85027; 86850; 86870; 86900; 86901; 87040; 88304; 88309; 88311; 93306; 94760; G0378; J3490; C1776; C8929; J0456; J0690; J0696; J1100; J1650; J1885; J2250; J2270; J2704; J3010; J7030; J7120; U0003

== ENCOUNTER 2021-12-27 10:41 | Outpatient (CLI) | payer MEDICARE ==
--- NOTE | 2021-12-27 13:52 | XRay Report ---
LEFT HIP 2 VIEWS INDICATION: M25.551. COMPARISON: 11/08/2021 IMPRESSION: Left hip prosthesis appears stable since 11/08/2021 exam. No acute osseous abnormality is appreciated. No dislocation. The soft tissues are unremarkable. Signer Name: Jj Hill Jr, MD Signed: 12/27/2021 1:48 PM Workstation Name: [id number]
== END 2021-12-27 10:42 | disposition home or self-care (01) ==
LOC: XRAY 10:41
PROVIDERS: ATTEND Orthopaedic Surgery
DX: M25.552 Pain in left hip (principal)